=== PATIENT | female | born 1960 | race Caucasian/White ===

== ENCOUNTER → 2018-07-05 08:32 | Outpatient (REF) | payer BC, SELFPAY ==
[2018-07-05 12:38] LABS: Cholesterol 180 mg/dL (50-200); HDL Cholesterol 60 mg/dL (40-60); LDL CHOLESTEROL 106 mg/dL (<100); TSH 1.37 uIU/mL (0.358-3.74); Triglyceride 82 mg/dL (30-150)
[2018-07-10 10:25] LABS: Hepatitis C Ab w Rflx HCV PCR Negative (NEGAT)
== END ==
LOC: NCHCN 08:32
PROVIDERS: PCP Nurse Practitioner Family; Visit Provider Nurse Practitioner Family
DX: Z00.00 Encounter for general adult medical examination without abnormal findings (principal); E03.9 Hypothyroidism, unspecified; Z13.220 Encounter for screening for lipoid disorders; Z11.59 Encounter for screening for other viral diseases
CPT/HCPCS: 80061; 83721; 86803; 84443

== ENCOUNTER 2018-07-24 00:54 | Outpatient (CLI) | payer BC, SELFPAY ==
--- NOTE | 2018-07-24 08:40 | DI.MRI_ITS ---
SYMPTOM/DIAGNOSIS: SCREENING, Z12.31 [facility] Z0000 BILATERAL SCREENING MAMMOGRAM: Mammograms were interpreted according to the usual protocol including computer analysis with CAD system, tomosynthesis and C view imaging. Comparison is made with exams from 2011 through 2017. The breasts are composed of scattered fibroglandular densities, breast density category B. No suspicious masses or suspicious microcalcifications are seen. There has been no significant change. IMPRESSION: Category 1-B, negative mammogram. Routine screening is recommended. [facility] ASSESSMENT OF FINDINGS: Negative. Category 1. Patient will receive a letter notifying them of these results. BI-RADS category B. There are scattered areas of fibroglandular density.
== END 2018-07-24 01:14 ==
PROVIDERS: PCP Nurse Practitioner Family; Visit Provider Nurse Practitioner Family
DX: Z00.00 Encounter for general adult medical examination without abnormal findings (principal); Z12.31 Encounter for screening mammogram for malignant neoplasm of breast
CPT/HCPCS: 77063; 77067

== ENCOUNTER 2019-06-19 08:20 | Outpatient (REF) | payer BC, SELFPAY ==
[2019-06-19 14:00] LABS: TSH 1.55 uIU/mL (0.36-3.74)
== END 2019-06-19 08:40 ==
LOC: NCHCN 08:20
PROVIDERS: PCP Nurse Practitioner Family; Visit Provider Nurse Practitioner Family
DX: E03.9 Hypothyroidism, unspecified (principal)
CPT/HCPCS: 84443

== ENCOUNTER 2019-09-10 01:45 | Outpatient (CLI) | payer BC, SELFPAY ==
--- NOTE | 2019-09-10 07:50 | DI.MAMMO_ITS ---
EXAM: MG MAMMO SCREENING CLINICAL HISTORY: SCREENING, Z12.31 TECHNIQUE: Bilateral full field digital CC and MLO mammographic images were obtained with 3D tomosyn thesis and utilizing computer aided detection (CAD). COMPARISON: Available for comparison. FINDINGS: Masses/Architectural Distortion: None seen. Microcalcifications: No suspicious pleomorphic-type are seen. Skin Thickening/Nipple Retraction: None. IMPRESSION: 1. No significant interval change with no specific features of malignancy noted. 2. Unless there is more urgent need, screening mammography is recommended, as per [employer] guidelines. ACR BI-RAD Category- 1 Negative Breast Density - Category B - Scattered areas of fibroglandular density A negative radiographic report should not delay biopsy if a dominant or clinically suspicious mass is present. Up to ten percent of cancers are not identified on mammography. A negative report may reinforce clinical impression. Adenosis and dense breasts may obscure an underlying neoplasm. False positive reports average 6 to 10%.
== END 2019-09-10 02:05 ==
PROVIDERS: PCP Nurse Practitioner Family; Visit Provider Nurse Practitioner Family
DX: Z12.31 Encounter for screening mammogram for malignant neoplasm of breast (principal)
CPT/HCPCS: 77063; 77067

== ENCOUNTER 2020-07-09 12:48 | Outpatient (REF) | payer BC, SELFPAY ==
--- NOTE | 2020-07-09 11:50 | PAPFT_PTH ---
PATIENT: KIMBERLY DAVALOS LOC: [facility]#:[id number] AGE/SX: 60/F ROOM: RE07/09/[address]: Rain Cavazos : 1960 BED: DIS: 07/09/2020 SPEC #: [id number] RECD: 07/10/20 12:44 STATUS: MINAL REShalini #: [id number] KATIE: 07/09/20 11:[address]: Rain Cavazos DEPT: [facility] Cytology RECD BY: Adriana Sorto Tissues: 1 - CX/ENDOCX FOR PAP SMEARS Procedures: PAP THIN PREP/UVM Screening HPV DNA PROBE Comments: [id number]
[2020-07-09 20:58] LABS: TSH (W/Ref FT4) 1.39 uIU/mL (0.36-3.74)
[2020-07-13 11:45] LABS: HIV-1/2 Ag & Ab Screen Negative (Negative)
== END 2020-07-09 13:08 ==
LOC: NCHCN 12:48
PROVIDERS: PCP Nurse Practitioner Family; Visit Provider Nurse Practitioner Family
DX: Z00.00 Encounter for general adult medical examination without abnormal findings (principal); E03.9 Hypothyroidism, unspecified; Z11.4 Encounter for screening for human immunodeficiency virus [HIV]; Z12.4 Encounter for screening for malignant neoplasm of cervix; F41.0 Panic disorder [episodic paroxysmal anxiety]; Z01.419 Encounter for gynecological examination (general) (routine) without abnormal findings
CPT/HCPCS: 87389; 88142; 84443; 87624

== ENCOUNTER 2020-09-11 03:02 | Outpatient (CLI) | payer BC, SELFPAY ==
--- NOTE | 2020-09-11 07:45 | DI.MAMMO_ITS ---
EXAM: MG MAMMO SCREENING CLINICAL HISTORY: SCREENING,Z12.31 TECHNIQUE: Mammograms were interpreted according to the usual protocol including computer analysis w [employer] CAD system, tomosynthesis and C-view imaging. COMPARISON: FINDINGS: The breasts are of moderate density with fairly symmetrical distribution of fibroglandular tissue. N o dominant mass or clumped microcalcification is identified in either breast. The current examinatio n is compared with previous examinations including August 2019 and there has been no gross interval change in appearance comparison with previous studies. IMPRESSION: No specific evidence of malignancy at this time. Routine screening examinations are suggested at yea rly intervals due to the family history of breast carcinoma. BI-RADS Category 1 - Negative Breast Density - Category B - Scattered areas of fibroglandular density
== END 2020-09-11 03:22 ==
PROVIDERS: PCP Nurse Practitioner Family; Visit Provider Nurse Practitioner Family
DX: Z12.31 Encounter for screening mammogram for malignant neoplasm of breast (principal)
CPT/HCPCS: 77063; 77067

== ENCOUNTER 2020-09-17 08:00 | Outpatient (CLI) | payer BC, SELFPAY ==
[2020-09-18 16:10] LABS: SARS-CoV-2 RNA Not Detected (NotDetected); SARS-CoV-2 RNA Source Nasal/Nares
== END 2020-09-17 08:20 ==
PROVIDERS: PCP Nurse Practitioner Family; Visit Provider Surgery
DX: Z01.818 Encounter for other preprocedural examination (principal)
CPT/HCPCS: U0003

== ENCOUNTER 2020-09-21 07:15 | Day surgery (SDC) | payer BC, SELFPAY ==
--- NOTE | 2020-09-21 06:43 | W.COLOREPORT ---
Date of service: 09/21/20 Time of Service: 08:47 Colonoscopy Report Date of procedure: 09/21/20 Pre-op diagnosis general: Screening and family history Post-op diagnosis procedure note: same (small polyp and mild diverticulosis) Procedure: Colonoscopy with polypectomy Surgeon: Destinee Santiago Anesthesia proc note operative: other (General/ASA 2/ Todd Ernst, GIA) Estimated blood loss (mL): 3 Pathology: other (transverse colon polyp) Complications: None Disposition: same day Indications: The patient is here for Colonoscopy pre-op. Her last screening was in 2014, which was unremarkable. She reports a family history of colon cancer in her sister and father. She has not had any bowel habit changes. -Discussed colonoscopy bowel prep as well as the procedure. Discussed possible complications of the procedure to include bleeding, pain, perforation, missed small lesion/polyp, sore throat, aspiration and adverse reaction to the medications. Questions were answered to patient?s satisfaction. No guarantees were implied or given Prep: Miralax/Dulcolax Procedure Start Time: Procedure End Time: : Retraction Time: 11 minutes Findings: one small benign appearing polyp mild sigmoid diverticulosis Procedure Description: After informed consent was obtained the patient was taken to the procedure room and placed in a left decubitous position. Monitors were applied and a time out was done. The patients name, date of , procedure, allergies to medications and metal in their body was reviewed. The patient was then sedated. Once sedated and comfortable a rectal exam was done. External exam was normal. Internal exam revealed a normal sphincter tone and no palpable masses. The scope was then introduced and retro-flexed. Grade 1 internal hemorrhoids were identified. The scope was then advanced to the cecum without difficulty. The ileocecal valve and appendiceal orifice were identified. The prep was good. The scope was then slowly retracted over 11 minutes back into the rectum. Polyps were removed with cold forceps in the transverse colon. There was mild diverticulosis noted in the sigmoid colon. The scope was removed and the patient was woken up and taken back to Same day surgery in stable condition. The patient tolerated the procedure well and there were no immediate complications. Follow up: The patient should follow up in 5 years unless they develop changes in bowel habits or other new gastrointestinal complaints.
--- NOTE | 2020-09-21 06:44 | W.PM.DSUDISC ---
Discharge Plan Disposition Patient Disposition: HOME Condition: Good Discharge Details Reason For Visit: Colonoscopy Attending Provider: Destinee Santiago Primary Care Provider: Rain Cavazos Home Meds and New Rx's Prescriptions: Continued levothyroxine 50 mcg tablet 50 mcg PO DAILY RF: 0 folic acid 0.4 MG tablet 1 tab PO DAILY RF: 0 aspirin [Aspir-Low] 81 MG tablet,delayed release (DR/EC) 81 mg DAILY RF: 0 cholecalciferol (vitamin D3) [Vitamin D3] 400 UNIT tablet 1 tab DAILY RF: 0 Discontinued polyethylene glycol 3350 17 gram/dose powder 238 g PO ONCE Qty: 238 RF: 0 bisacodyl [Dulcolax (bisacodyl)] 5 mg tablet,delayed release (DR/EC) 5 mg PO ONCE Qty: 4 RF: 0 bisacodyl [Dulcolax (bisacodyl)] 5 mg tablet,delayed release (DR/EC) 5 mg PO ONCE Qty: 4 RF: 0 polyethylene glycol 3350 17 gram/dose powder 17 g PO ONCE Qty: 238 RF: 0 Discharge Instructions Instructions: Diverticulosis (DC) Additional Instructions: Findings: one small, most likely benign polyp very mild diverticulosis of the sigmoid colon Follow up: 5 years Please call if you develop: fevers >101.5 Nausea or Vomiting Abdominal pain that is not transient DAY SURGERY UNIT POST ENDOSCOPY INSTRUCTIONS 1. Because there will be medication in your system for the next 24 hours, you may feel a little sleepy. Your coordination will be affected. Therefore: a. Do not drive or operate dangerous equipment for 24 hours. b. Do not drink alcohol beverages for 24 hours (not even beer). c. Plan to go home and rest for the day. 2. Generally there are no restrictions on your activity after a day or so has gone by, but you may feel a bit fatigued for a few days. 3 After you arrive home you may have a light meal and return to a normal diet as you can tolerate it without feeling sick to your stomach. 4. After surgery, you may feel pain or discomfort. This should be only transient, but if it persists please contact your doctor. 5. If there are any questions regarding the findings of your procedure, please feel free to contact your doctor. 6. If you are unable to contact your doctor with a problem, contact the hospital at [phone]. 7. Continue all your regular medications unless directed otherwise. I understand the above instructions and have no questions. Signature of Patient or Responsible Adult Escort Date/Time Name of Responsible Adult Escort Signature of Nurse Date/Time Activity:: Activity as Tolerated Diet:: high fiber diet Discharge Orders Discharge Orders: Discharge Order (Routine); Ordered 09/21/20 Ordered By: Destinee Santiago DS: Diagnosis Discharge Diagnosis (1) Diverticulosis: Status: Acute
[2020-09-21 07:18] VITALS: BP 109/79; PULSE 88; RESP 17; TEMP 36.5; O2SAT 100
[2020-09-21] MEDS: Lactated Ringers 1,000 ML 80 ML IV (07:45)
--- NOTE | 2020-09-21 09:02 | BOWEL_PTH ---
PATIENT: KIMBERLY DAVALOS LOC: [facility] U#:[id number] AGE/SX: 60/F ROOM: RE09/21/[address]: Destinee Santiago MD : 1960 BED: DIS: 09/21/2020 SPEC #: [id number] RECD: 09/21/20 09:56 STATUS: AXELJyoti REQ #: [id number] KATIE: 09/21/20 09:[address]: Destinee Santiago DEPT: Surgical Specimen RECD BY: Candy Sprague ENTERED: 09/21/20 09:58 SP TYPE: Bowel OTHR DR: Rain Cavazos Tissues: 1 - BIOPSY BOWEL Procedures: GROSS AND MICRO LEVEL 4 Comments: [id number] ([id number] [facility]#)
[2020-09-21 09:42] VITALS: BP 110/68; PULSE 68; RESP 16; TEMP 36.4; O2SAT 98
== END 2020-09-21 09:50 | disposition home or self-care (01) ==
LOC: SUR 07:15
PROVIDERS: PCP Nurse Practitioner Family; Visit Provider Surgery
PROC: 0DJD8ZZ Inspection of Lower Intestinal Tract, Via Natural or Artificial Opening Endoscopic (ICD-10-PCS; CPT 45378; principal; 2020-09-21 08:15)
DX: Z12.11 Encounter for screening for malignant neoplasm of colon (principal); Z80.0 Family history of malignant neoplasm of digestive organs; E03.9 Hypothyroidism, unspecified; K63.5 Polyp of colon; K57.30 Diverticulosis of large intestine without perforation or abscess without bleeding
CPT/HCPCS: 45380; 88305; J2001